=== PATIENT | male | born 2000 | race Caucasian/White ===

== ENCOUNTER 2023-11-01 17:15 | Emergency (ER) | payer OTHER, SELFPAY ==
[2023-11-01 17:17] VITALS: BP 133/93
--- NOTE | 2023-11-01 18:47 | ED.GENMED ---
History of Present Illness
General
Chief Complaint: Fall
Source: patient
Time Seen by Provider: 11/01/23 18:17
History of Present Illness
History of Present Illness:
22yoM with no significant past medical history presenting with his [id number] for evaluation after a fall less than one hour prior to arrival. Patient was doing some yard work and he accidentally fell about 5 feet off of a retention wall. Patient
fell backwards onto his back. He injured his R knee during the fall. He hit his head but denies any LOC and is not having any headache currently. His only current complaint is R knee pain. Patient reports hearing a pop in the knee when he tried to
walk after the incident. He denies any neck pain, back pain, vomiting, dizziness, paresthesias. No prior injuries to the R knee. He received a tetanus shot last year.
Phy Exam
General Physical Exam
General Presentation: well appearing and no apparent distress
General age: appears stated age
General Skin: warm and dry
General Habitus: normal
General Mental: alert
ENT Exam
ENT Exam: normocephalic (No external signs of head trauma)
Additional ENT: No cervical spine tenderness with full ROM
Eye Exam
Eye Exam: PERRL
Pulmonary Exam
Pulmonary Exam: lungs clear, no respiratory distress, chest non tender, no crackles and no wheezing
Gastrointestinal Exam
Gastrointestinal Exam: non tender, soft and non distended
Neurological Exam
Neurological Exam: alert and no motor deficits
[place] Coma Scale
Eye Opening: Spontaneous
Verbal Response: Oriented
Motor Response: Obeys Commands
GCS Total Score: 15
Musculoskeletal Exam
Musculoskeletal Exam: other (R knee: Abrasions noted. No deformity or effusion. +Mild generalized tenderness throughout joint. ROM intact. 2+ DP pulse and sensation intact. )
Skin Exam
Skin Exam: normal color and warm/dry
Psychiatric Exam
Psychiatric Exam: normal mood/affect
Course
Orders/Labs/Results
Orders:
Orders
11/01/23 18:25
Knee, Right 4 or More Views [CR Knee- Right 4 Or More View*] Urgent
Comment:
Reason For Exam: fall
11/01/23 19:02
Acetaminophen [Tylenol] 1,000 mg PO NOW STA
Ibuprofen [Motrin] 600 mg PO NOW STA
11/01/23 19:48
Crutches-Treatment ONCE
Knee Immobilizer Right-Treatme ONCE
Vital Signs
Initial and Last Documented VS:
Initial Vital Signs
Temp Pulse Resp BP Pulse Ox
98.9 F 87 18 133/93 96
11/01/23 17:17 11/01/23 17:17 11/01/23 17:17 11/01/23 17:17 11/01/23 17:17
Last Documented Vital Signs
Temp Pulse Resp BP Pulse Ox
98.9 F 87 18 133/93 96
11/01/23 17:17 11/01/23 17:17 11/01/23 17:17 11/01/23 17:17 11/01/23 17:17
MDM/Problems Addressed
Differential Diagnosis Includes:
22yoM here with R knee pain after a fall. +head strike but there was no LOC and he denies any headache. VSS. No external signs of head trauma. Cervical spine cleared via NEXUS criteria. Knee abrasions noted without deformity. ROM intact. RLE is
neurovascularly intact. Differential diagnosis includes but is not limited to: fracture, sprain, abrasion
X-rays of R knee obtained which are negative for fractures. He was placed in a knee immobilizer. Supportive care discussed. Advised f/u with orthopedics. Patient discharged in stable condition.
*Critical Care Note
Total Time (30-74mins, 75-104mins- exclusive of procedures): Not Applicable
ED Attending Note
-
Portions of this chart may have been created with voice recognition software.� Occasional wrong word or��sound alike� substitutions may have occurred due to the inherent limitations of voice recognition software.
Discharge Plan
Departure
Patient Disposition: Home (Routine Discharge)
Date of Disposition: 11/01/23
Time of Disposition: 19:49
Patient with high blood pressure during this ER visit?: No
Discharge Problem:
Injury of knee, right
Instructions: Knee Sprain ED
Referrals:
Breezy Rivero MD, Resident [Family Provider] -
Freddie Dupont MD [Active] -
Activity Restrictions/Additional Instructions:
Apply ice to affected area and wear knee immobilizer. Take Tylenol as needed for pain.
Please call tomorrow to schedule a follow-up with orthopedics.
Interventions
Interventions:
*Risk Screen - Suicide Last Done: 11/01/23 17:17
*General Assessment Last Done: 11/01/23 17:17
*Neglect/Abuse Screening Last Done: 11/01/23 17:17
*ED COVID-19 Vaccine History Last Done: 11/01/23 17:17
*Nursing Disposition Last Done: 11/01/23 20:15
Discharge Date and Time
Discharge Date/Time: 11/01/23 20:16
Print Language: LITHUANIAN
[2023-11-01] MEDS: TYLENOL 1000 MG PO (19:06)
== END 2023-11-01 20:16 | disposition home or self-care (01) ==
LOC: EMR 17:15
PROVIDERS: EMERGENCY PHYSICIAN Student in an Organized Health Care Education/Training Program; FAMILY PHYSICIAN Student in an Organized Health Care Education/Training Program
DX: S89.91XA Unspecified injury of right lower leg, initial encounter (principal); W19.XXXA Unspecified fall, initial encounter
CPT/HCPCS: 99283; 73564